=== PATIENT | female | born 1985 | race Caucasian/White ===

== ENCOUNTER 2016-12-18 18:07 | Emergency (ER) | payer MEDICAID | END 2016-12-18 22:14 | disposition home or self-care (01) | LOC: ER 18:07 | DX: F43.21 Adjustment disorder with depressed mood (principal); F33.1 Major depressive disorder, recurrent, moderate; N30.01 Acute cystitis with hematuria; R74.8 Abnormal levels of other serum enzymes; Z79.899 Other long term (current) drug therapy; E11.9 Type 2 diabetes mellitus without complications; J45.909 Unspecified asthma, uncomplicated; F41.1 Generalized anxiety disorder | CPT/HCPCS: 36415; 80053; 80307; 80320; 80329; 81001; 84439; 84443; 85025; 85610; 87088 ==